=== PATIENT | female | born 1980 | race Caucasian/White ===

== ENCOUNTER 2023-03-31 14:00 | Outpatient (RCR) | payer OTHER, SELFPAY | END 2023-05-01 09:14 | disposition home or self-care (01) | PROVIDERS: PCP Family Medicine; Visit Provider Physician Assistant Medical | DX: G54.0 Brachial plexus disorders (principal); Z51.89 Encounter for other specified aftercare | CPT/HCPCS: 97110; 97140; 97161 ==